=== PATIENT | female | born 1940 | race Asian ===

== ENCOUNTER 2019-02-12 13:38 | Emergency (ER) | payer MEDICARE, MEDICAID ==
[~2019-02-12] VITALS: Ht 157.5 cm; Wt 42.6 kg
[2019-02-12 13:45] VITALS: BP 149/73
[2019-02-12] MEDS ORDERED: oxyCODONE HCL/Acetaminophen 5/325mg ORAL ONE ×2 (13:45→15:45)
--- NOTE | 2019-02-12 13:45 | NUR ---
ED Nurse Note: pt walked in to ER with a son from street after tripping and falling. pt stays in SNF and went out with a son and did not see the bump and tripped and fell. Lt wrist had edema and pt reported pain 10/10. pt aao x4 and ambulatory. skin clean and intact. calm and cooperative. no acute distress noted at this time.
[2019-02-12] MEDS: Morphine Sulfate 4mg/ml Inj (IV USE ONLY) IVP ONE ×2 (13:56→14:02)
--- NOTE | 2019-02-12 14:02 | Emergency Room Report ---
History of Present Illness General Chief Complaint: Upper Extremity Injury Source: Patient Present Illness [facility] Disclaimer: Please note that this report is being documented using DRAGON technology. This can lead to erroneous entry secondary to incorrect interpretation by the dictating instrument. 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 She is right-hand dominant. Patient had a misstep on uneven sidewalk falling forward onto an outstretched left wrist. Noted immediate pain and deformity. There was no head injury or loss of consciousness. Denies neck or back pain. She is able to move the fingers of the left hand, the left shoulder and the left elbow without difficulty. The pain is centered around the left wrist. She denies any numbness or tingling. Denies any weakness. Does note limited range of motion secondary to pain and swelling. Has not taken any medication prior to arrival. She has been applying ice. PMH: Hypertension, hyperlipidemia, diabetes, bile duct cancer PSH: Whipple procedure Allergies: Denies Social Hx: Denies drug, tobacco or alcohol use Allergies: Coded Allergies: No Known Allergies (Unverified , 02/12/19) Nursing Documentation-PMH Past Medical History: No History, Except For Hx Diabetes: Yes Hx Cancer: Yes - bileduct CA Review of Systems All Other Systems: negative except mentioned in HPI Physical Exam Vital Signs Date Time Temp Pulse Resp B/P (MAP) Pulse Ox O2 Delivery O2 Flow Rate FiO2 02/12/19 13:41 98.1 69 18 149/73 (98) 97 Room Air General: Awake and alert, no acute distress HEENT: NC/AT. EOMI. Resp: Normal work of breathing. Skin: Intact. No abrasions, laceration or rash over the exposed skin MSK: Normal tone and bulk. Moving all extremities. Deformity over the dorsal aspect of the left wrist with surrounding edema. No overlying skin breakdown, no lacerations, no rash or abrasions. 2+ radial pulses bilaterally. Capillary refill less than 2 seconds in the digits. Neuro: Awake and alert. Mentating appropriately. Sensation intact over the dermatomes of the upper extremities bilaterally. Procedures Critical Care Time Critical Care Time Total critical care time: Approximately 31 minutes Due to a high probability of clinically significant, life threatening deterioration, the patient required the highest level of preparedness to intervene emergently and I personally spent this critical care time directly and personally managing the patient. This critical care time included obtaining a history, examining the patient, pulse oximetry, ordering and reviewing studies , ordering treatments, evaluating response to treatment and updating management plan as needed, frequent reassessment and discussion with other providers as well as arranging for ultimate disposition. This critical to care time was performed to assess and manage the high probability of life-threatening deterioration that could result in multiorgan failure. This critical care time is separate from the separately billable procedures and treating other patients. Joint Reduction Joint Reduction : Consent: Emergent Joint Reduction Site: wrist (L) Procedural Sedation: Yes Reduction Attempts: Other - 2 Pre-Procedure NV Exam: Yes Post-Procedure NV Exam: Yes Post Joint Reduction Film: joint reduced Patient Tolerated: Well Complications: None Procedural Sedation Consent: Verbal Airway Assessment (Malampati): I Heart: normal Lungs: normal Procedures/Plans: Closed Reduction Plan for Moderate Sedation: Other - 10mg Etomidate Procedure Narrative Procedural sedation performed at bedside for closed reduction of a left Colles' fracture. 10 mg of IV Versed were used without difficulty. The patient was on cardiac catheterization technologist and had supplemental oxygen through nasal cannula. There was no significant change in vital signs. Oxygenation remained greater than 98%, no hypotension, no tachycardia or bradycardia. Patient tolerated the procedure well. She was awake and alert approximately 5 minutes after initial administration of sedative. Mentating appropriately. No nausea or vomiting reported. Communication: No Apparent Limitation Mental Status: Awake Respiration: Unlabored Nausea: NO Vomiting: NO Medical Decision Making Diagnostic Impression: Primary Impression: Distal radius fracture, left ER Course 79-year-old [id number] female presents for evaluation of left wrist injury. Differential includes was not limited to fracture, dislocation, contusion, effusion. Will obtain x-rays and give oral pain medication. Do not believe CT or blood work is indicated at this time. Will reassess frequently and adjust work-up as needed. Other X-Ray Diagnostic Results Other X-Ray Diagnostic Results #1: X-Ray ordered: Left wrist # of Views/Limited Vs Complete: 3 View Indication: Pain EP Interpretation: Yes Interpretation: other - Distal radius fracture with minimal dorsal displacement Impression: Other - Colles' fracture, minimally displaced Electronically Signed by: Electronically signed by Dr. Yoshi M. Daniel Other X-Ray Diagnostic Results #2: X-Ray ordered: Left wrist, postreduction # of Views/Limited Vs Complete: 2 View Indication: Pain EP Interpretation: Yes Interpretation: other - Distal radius fracture with splint applied Reevaluation Time: 16:04 Last Vital Signs Date Time Temp Pulse Resp B/P (MAP) Pulse Ox O2 Delivery O2 Flow Rate FiO2 02/12/19 13:41 98.1 69 18 149/73 (98) 97 Room Air Reevaluation Impression Patient underwent a hematoma block and bedside reduction of the left distal radius fracture with unsatisfactory alignment. Procedural sedation was performed using 10 mg of etomidate and the patient was successfully reduced and resplinted. She was neurologically and vascularly intact at the start and end of the reduction. Capillary refill is brisk. She was placed in a splint and will be discharged home to follow-up with orthopedic surgery. We discussed reasons to return to the emergency department with patient and her family, appropriate splint care, need for follow-up with orthopedic surgery and she was provided several surgeons names as well as the orthopedic urgent care in the area for further evaluation and treatment. She was provided with her images. Patient and family understand and agree with this treatment plan will be discharged to her nursing facility Disposition: HOME, SELF-CARE Condition: Improved Scripts Ibuprofen* (MOTRIN*) 600 Mg Tablet 600 MG ORAL Q6HR PRN for For Pain, #40 TAB 0 Refills Prov: Yoshi Sanchez MD 02/12/19 Hydrocodone Bit/Acetaminophen 5-325* (NORCO 5-325*) 1 Each Tablet 1 TAB ORAL Q6H PRN for For Pain, #20 TAB 0 Refills Prov: Yoshi Sanchez MD 02/12/19 Yoshi Sanchez MD Feb 12, 2019 14:02
--- NOTE | 2019-02-12 14:03 | NUR ---
ED Nurse Note: pt refused iv access and Morphine and zofran IVP. ERMD made aware. returned the meds with RAMÓN Rausch witnessed.
[2019-02-12] MEDS ORDERED: Etomidate 40mg/20ml Inj IV ONE ×2 (14:06→16:30)
--- NOTE | 2019-02-12 14:48 | NUR ---
ED Nurse Note: x-ray at bedside.
[2019-02-12 14:51] VITALS: BP 164/85
[2019-02-12] MEDS ORDERED: Lidocaine 1% Plain 30 ml INJ ONE (15:15)
--- NOTE | 2019-02-12 15:35 | NUR ---
ED Nurse Note: Splint applied at this time by EMT. Another order for Percocet ordered by ERMD. Pt tolerates well at this time. No adverse reaction from previous dosage.
[2019-02-12] MEDS ORDERED: NORCO 5-325 TA1 EACH ORAL (15:42)
[2019-02-12] MEDS ORDERED: IBUPROFEN600 MG ORAL (15:42)
--- NOTE | 2019-02-12 15:55 | NUR ---
ED Nurse Note: X-ray tech at bedside for imaging.
--- NOTE | 2019-02-12 16:35 | NUR ---
ED Nurse Note: L arm reduction procedure done by RYANNE, RN and EMT at bedside. 10mg Atomidate given. Pt in light sedation. Oxygen 2L NC applied. child monitor attached to pt. SAT maintained >95%.
[2019-02-12 16:48] VITALS: BP 150/75
[2019-02-12 17:01] VITALS: BP 150/75
--- NOTE | 2019-02-12 17:02 | NUR ---
ER DISCHARGE NOTE: Patient is cleared to be discharged per ERMD, pt is aox4, on room air, with stable vital signs. pt was given dc and prescription instructions, pt was able to verbalize understanding, pt id band and iv site removed without complications. pt is able to ambulate with steady gait. pt took all belongings.
--- NOTE | 2019-02-13 12:36 | Diagnostic Imaging Report ---
Clinical Indication:Left wrist pain Technique: 3 views of the left wrist Comparison: None Findings: There is an impacted posteriorly angulated fracture of the distal radius. This is probably comminuted and appears to involve the articular surface. There is an associated nondisplaced fracture of the ulnar styloid. No carpal fracture demonstrated. There are mild degenerative changes of the first carpometacarpal joint. Impression: Positive for distal radial and ulnar fractures This agrees with the preliminary interpretation reported by the emergency room physician in the electronic medical record
--- NOTE | 2019-02-13 12:41 | Diagnostic Imaging Report ---
Indication: Pain, trauma, status post closed reduction Technique: 2 views of the left ribs Comparison: One hour earlier Findings: Overlying plaster splint obscures bony detail. Previously demonstrated distal radial and ulnar fractures are splinted, alignment probably not significantly changed. Impression: Previously demonstrated distal radial ulnar fractures, now in plaster splint
--- NOTE | 2019-02-13 12:48 | Diagnostic Imaging Report ---
Clinical Indication:Pain, postreduction Technique: 2 views of the left wrist Comparison: 2 hours earlier Findings: There is considerable improvement in anatomic alignment of the previously demonstrated distal radial fracture, with markedly decreased posterior angulation. The fracture is more clearly seen to be comminuted with intra-articular involvement on the current exam. Previously demonstrated ulnar styloid fracture is less clearly evident, however. Impression: Improved alignment, presumably post closed reduction, of previously demonstrated distal radial fracture
== END 2019-02-12 17:02 | disposition home or self-care (01) ==
LOC: EMR 14:05
DX: S52.502A Unspecified fracture of the lower end of left radius, initial encounter for closed fracture (principal); E11.9 Type 2 diabetes mellitus without complications; Z85.89 Personal history of malignant neoplasm of other organs and systems; E78.5 Hyperlipidemia, unspecified; I10 Essential (primary) hypertension; W18.39XA Other fall on same level, initial encounter; Y92.480 Sidewalk as the place of occurrence of the external cause
CPT/HCPCS: 25605; 73100; 73110; 99291; J2001; J2405

== ENCOUNTER 2019-04-02 12:43 | Emergency (ER) | payer MEDICARE, MEDICAID ==
[~2019-04-02] VITALS: Ht 157.5 cm; Wt 44.5 kg
[~2019-04-02 12:43] MED LIST: IBUPROFEN600 MG ORAL; NORCO 5-325 TA1 EACH ORAL
[2019-04-02] MEDS ORDERED: Morphine Sulfate 2mg/ml Inj(IV/IM USE ONLY) IVP ONE (13:15)
[2019-04-02 13:51] LABS: APPEARANCE,URINE CLEAR; BILIRUBIN, URINE NEGATIVE (NEGATIVE); GLUCOSE, URINE (UA) NEGATIVE (NEGATIVE); KETONES,URINE NEGATIVE (NEGATIVE); LEUKOCYTE ESTERASE ,URINE NEGATIVE (NEGATIVE); NITRITE,URINE NEGATIVE (NEGATIVE); PH,URINE 6 (4.5-8.0); PROTEIN,URINE 2+ (NEGATIVE); UROBILINOGEN,URINE NORMAL MG/DL (0.0-1.0)
[2019-04-02 13:53] LABS: BASOPHILS % (AUTO) 0.6 % (0.0-2.0); EOSINOPHILS % (AUTO) 2.2 % (0.0-3.0); HEMATOCRIT 36.5 % (37.0-47.0); HEMOGLOBIN 12.2 G/DL (12.0-16.0); LYMPHOCYTES % (AUTO) 21.1 % (20.0-45.0); MEAN CORPUSCULAR VOLUME 100 FL (80-99); MONOCYTES % (AUTO) 8.7 % (1.0-10.0); NEUTROPHILS % (AUTO) 67.4 % (45.0-75.0); PLATELET COUNT 159 K/UL (150-450); RED BLOOD COUNT 3.65 M/UL (4.20-5.40); RED CELL DISTRIBUTION WIDTH 11.3 % (11.6-14.8); WHITE BLOOD COUNT 9.1 K/UL (4.8-10.8)
[2019-04-02 13:56] LABS: COLOR,URINE YELLOW
[2019-04-02 13:57] LABS: INR 0.9 (0.9-1.1)
[2019-04-02 13:58] LABS: ANION GAP 10 mmol/L (5-15); BLOOD UREA NITROGEN 13 mg/dL (7-18); CALCIUM 9.5 MG/DL (8.5-10.1); CARBON DIOXIDE 26 MMOL/L (21-32); CHLORIDE 106 MMOL/L (98-107); CREATININE 0.7 MG/DL (0.55-1.30); SODIUM 142 MMOL/L (136-145)
[2019-04-02 14:03] VITALS: BP 129/79
[2019-04-02 14:03] LABS: ALANINE AMINOTRANSFERASE 144 U/L (12-78); ALBUMIN 3.5 G/DL (3.4-5.0); ALBUMIN/GLOBULIN RATIO 0.7 (1.0-2.7); ALKALINE PHOSPHATASE 157 U/L (46-116); ASPARTATE AMINO TRANSFERASE 82 U/L (15-37); BILIRUBIN,TOTAL 0.5 MG/DL (0.2-1.0)
--- NOTE | 2019-04-02 14:05 | NUR ---
ED Nurse Note:pt. came with lower back pain started this morning no trauma reported, blood and urine senty to labs, pain meds given
--- NOTE | 2019-04-02 14:52 | NUR ---
ED Nurse Note:pt. had CT scan done
--- NOTE | 2019-04-02 14:52 | Emergency Room Report ---
History of Present Illness General Chief Complaint: Lower Back Pain or Injury Source: Patient (Tarun Segovia MD) Present Illness HPI Patient is a 79-year-old female who presents after increased low back pain and sacral pain. Patient had spontaneous onset of pain. She had some prior history of malignancy approximately 10 years ago. She is not currently on any treatment at this time and has not had any recurrences. She reports having pain worsening with movement. She denies any recent injuries. Pain was sharp in nature and did not radiate. She had been able to ambulate. She denies any similar episodes to this. No numbness to her extremities. (Tarun Segovia MD) Allergies: Coded Allergies: No Known Allergies (Unverified , 02/12/19) Patient History Reviewed Nursing Documentation: PMH: Agreed; PSxH: Agreed (Tarun Segovia MD) Nursing Documentation-PM Past Medical History: No History, Except For Hx Diabetes: Yes Hx Cancer: Yes - bileduct CA (Tarun Segovia MD) Physical Exam Vital Signs Date Time Temp Pulse Resp B/P (MAP) Pulse Ox O2 Delivery O2 Flow Rate FiO2 04/02/19 12:52 98.4 109 21 129/79 (96) 95 Room Air Sp02 EP Interpretation: reviewed, normal General Appearance: normal inspection, well appearing, no apparent distress, alert, GCS 15, Chronically Ill Head: atraumatic ENT: normal ENT inspection, hearing grossly normal, normal voice Neck: normal inspection, full range of motion, supple, no bony tend Respiratory: normal inspection, lungs clear, normal breath sounds, no respiratory distress, no retraction, no wheezing Cardiovascular #1: regular rate, rhythm, no edema Gastrointestinal: normal inspection, normal bowel sounds, non tender, soft, no guarding, no hernia Genitourinary: no CVA tenderness Musculoskeletal: normal inspection, normal range of motion, tender - buttock, no erythema, no deformity, no stepoffs. Neurologic: normal inspection, alert, oriented x3, responsive, pole classifier III-XII nml as tested, normal gait Psychiatric: normal inspection, judgement/insight normal, mood/affect normal (Tarun Segovia MD) Vital Signs Date Time Temp Pulse Resp B/P (MAP) Pulse Ox O2 Delivery O2 Flow Rate FiO2 04/02/19 12:52 98.4 109 21 129/79 (96) 95 Room Air Sp02 EP Interpretation: reviewed, normal General Appearance: well appearing, no apparent distress, alert Head: normocephalic, atraumatic Eyes: bilateral eye PERRL, bilateral eye EOMI ENT: uvula midline, moist mucus membranes Neck: supple, thyroid normal, supple/symm/no masses Respiratory: lungs clear, no respiratory distress, no retraction, no accessory muscle use Cardiovascular #1: normal peripheral pulses, regular rate, rhythm, no edema, no gallop, no murmur Gastrointestinal: non tender, soft, no guarding, no rebound Musculoskeletal: normal inspection, gait/station normal, other - Some tenderness L4 region Neurologic: alert, oriented x3, motor strength/tone normal, sensory intact, normal gait Psychiatric: mood/affect normal Skin: no rash, warm/dry (Khang Barillas MD) Medical Decision Making Diagnostic Impression: Primary Impression: Compression fracture of L4 vertebra Qualified Codes: S32.040A - Wedge compression fracture of fourth lumbar vertebra, initial encounter for closed fracture ER Course Patient presented for low back pain and sacral pain. Differential diagnosis include was not limited to electrolyte abnormality, compression fracture, metastatic lesion among others. Because of complexity of patient's case laboratory tests and imaging studies were ordered. Patient had benign exam does not appear to have any abdominal tenderness. She was noted to be ambulatory. Patient was given IV pain medications with significant improvement. CT of the lumbar spine as well as the soft pelvis was ordered due to patient's locations of pain advanced age and prior malignancy. Patient was endorsed to pending CT imaging. Labs Test 04/02/19 13:36 White Blood Count 9.1 K/UL (4.8-10.8) Red Blood Count 3.65 M/UL (4.20-5.40) Hemoglobin 12.2 G/DL (12.0-16.0) Hematocrit 36.5 % (37.0-47.0) Mean Corpuscular Volume 100 FL (80-99) Mean Corpuscular Hemoglobin 33.5 PG (27.0-31.0) Mean Corpuscular Hemoglobin Concent 33.4 G/DL (32.0-36.0) Red Cell Distribution Width 11.3 % (11.6-14.8) Platelet Count 159 K/UL (150-450) Mean Platelet Volume 5.9 FL (6.5-10.1) Neutrophils (%) (Auto) 67.4 % (45.0-75.0) Lymphocytes (%) (Auto) 21.1 % (20.0-45.0) Monocytes (%) (Auto) 8.7 % (1.0-10.0) Eosinophils (%) (Auto) 2.2 % (0.0-3.0) Basophils (%) (Auto) 0.6 % (0.0-2.0) Prothrombin Time 9.8 SEC (9.30-11.50) Prothromb Time International Ratio 0.9 (0.9-1.1) Activated Partial Thromboplast Time 25 SEC (23-33) Urine Color Yellow Urine Appearance Clear Urine pH 6 (4.5-8.0) Urine Specific [place] 1.020 (1.005-1.035) Urine Protein 2+ (NEGATIVE) Urine Glucose (UA) Negative (NEGATIVE) Urine Ketones Negative (NEGATIVE) Urine Blood 1+ (NEGATIVE) Urine Nitrite Negative (NEGATIVE) Urine Bilirubin Negative (NEGATIVE) Urine Urobilinogen Normal MG/DL (0.0-1.0) Urine Leukocyte Esterase Negative (NEGATIVE) Urine RBC 2-4 /HPF (0 - 2) Urine WBC 0-2 /HPF (0 - 2) Urine Squamous Epithelial Cells Few /LPF (NONE/OCC) Urine Bacteria Occasional /HPF (NONE) Sodium Level 142 MMOL/L (136-145) Potassium Level 4.0 MMOL/L (3.5-5.1) Chloride Level 106 MMOL/L (98-107) Carbon Dioxide Level 26 MMOL/L (21-32) Anion Gap 10 mmol/L (5-15) Blood Urea Nitrogen 13 mg/dL (7-18) Creatinine 0.7 MG/DL (0.55-1.30) Estimat Glomerular Filtration Rate mL/min (>60) Glucose Level 115 MG/DL (74-106) Calcium Level 9.5 MG/DL (8.5-10.1) Total Bilirubin 0.5 MG/DL (0.2-1.0) Aspartate Amino Transf (AST/SGOT) 82 U/L (15-37) Alanine Aminotransferase (ALT/SGPT) 144 U/L (12-78) Alkaline Phosphatase 157 U/L (46-116) Troponin I 0.000 ng/mL (0.000-0.056) Total Protein 8.2 G/DL (6.4-8.2) Albumin 3.5 G/DL (3.4-5.0) Globulin 4.7 g/dL Albumin/Globulin Ratio 0.7 (1.0-2.7) (Tarun Segovia MD) ER Course The patient presents with acute onset of back pain. There is a completely normal neurological exam, no history of IV drug use, and no history of bowel or bladder incontinence, no perianal numbness/tingling, no constipation or urinary retention. Once the patient's pain was adequately controlled, the patient was able to ambulate and be discharged in stable condition with anticipatory guidance provided. Patient counseled to follow-up with ortho spine neurosurgery spine, given her L4 compression fracture. (Khang Barillas MD) CT/MRI/US Diagnostic Results CT/MRI/US Diagnostic Results : Impression [facility] [address] [place] [address] [phone], fax [phone] Grupo Nielsen M.D. Rivet Passer Patient : AZUCENA YOUNG Referring Physician: Tarun Segovia MD ID Number: [id number] Service Date: 04/02/19 : 1940 Report Date: 04/02/19 Gender: F Accession No.: [id number] Location: [facility] Procedure: CT Pelvis no Contrast CT PELVIS Without Contrast: Mild anterior compression fracture deformity of L4 with approximately 10% height loss. No other fracture or dislocation seen in the pelvis. Trace free fluid in the pelvic cul-de-sac. Incidental note of coarse calcifications in the right ovary. Dictated By: Stone Elise MD Electronically Signed By: Signed Date/Time CC: Procedure: CT L Spine no Contrast CT L SPINE: Mild anterior compression fracture deformity of L4 with approximately 10% height loss. No bony retropulsion into the spinal canal. No significant paravertebral hematoma. Degenerative disc space loss and endplate osteophytes throughout the lumbar spine. Atherosclerosis throughout the abdominal aorta and its proximal branches. No abdominal aortic aneurysm. Dictated By: Stone Elise MD Electronically Signed By: Signed Date/Time CC: (Khang Barillas MD) Last Vital Signs Date Time Temp Pulse Resp B/P (MAP) Pulse Ox O2 Delivery O2 Flow Rate FiO2 10/27/19 14:03 98.4 78 21 129/79 97 Room Air Status: improved (Tarun Segovia MD) Disposition: HOME, SELF-CARE Condition: Stable Referrals: Orthopedic Urgent Care Patient Instructions: Back Pain, Adult Additional Instructions: The patient was provided with discharge instructions, notified to follow-up with a primary care doctor and or specialist in the next 24-48 hours, and to return to the ED if they have worsening of their symptoms. Please note that this report is being documented using [employer]omik technology. This can lead to erroneous entry secondary to incorrect interpretation by the dictating instrument. PLEASE FOLLOW-UP WITH ORTHO SPINE, OR NEUROSURGERY SPINE Tarun Segovia MD Apr 02, 2019 14:52 Khang Barillas MD Apr 02, 2019 16:14
--- NOTE | 2019-04-02 15:53 | Diagnostic Imaging Report ---
Indication: Back pain Technique: Continuous helical transaxial imaging of the lumbar spine was obtained. . Coronal 2-D reformats were also obtained. Study obtained in a Siemens sensation [address] Total Dose length Product (DLP): [address] Dose Index Volume (CTDIvol): 14.7 mGy Comparison: None Findings: There is a mild fracture of the superior anterior endplate of L4 probably best appreciated on sagittal reconstructions. This could be acute. Correlate clinically. There is no soft tissue swelling or evidence of bony retropulsion identified. Bones are osteopenic. Moderate degenerative changes with endplate osteophyte formation and hypertrophied facets noted at multiple levels. Aorta is moderately calcified. There are surgical clips demonstrated within the abdomen. IMPRESSION: Mild superior endplate fracture of the L4 vertebra with the minimal loss of height. This could be an acute injury. Correlate clinically. MRI may be helpful to assess for acuity. Degenerative disease of the lumbar spine as described above Osteoporosis. [facility] has communicated the preliminary results to the Emergency Department. Their findings are largely concordant with this report. The CT scanner at [facility] is accredited by the [employer] and the scans are performed using dose optimization techniques as appropriate to a performed exam including Automatic Exposure control.
--- NOTE | 2019-04-02 15:58 | Diagnostic Imaging Report ---
Indication: Pelvic pain. Trauma Technique: Continuous helical transaxial imaging of the pelvis was obtained from the iliac crest to the pubic symphysis. Coronal 2-D reformats were also obtained. Study obtained in a Siemens sensation [address] Total Dose length Product (DLP): [address] Dose Index Volume (CTDIvol): 17.2 mGy Comparison: None Findings: No acute fracture is identified. The bones are osteopenic. 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 Aortoiliac calcifications are moderate in degree. Please refer to the separately dictated CT of the lumbar spine for more information. Atrophic uterus noted. There is a calcified focus within the right ovary nonspecific. Appendix is normal. IMPRESSION: No acute injury identified. Other incidental findings as above [facility] has communicated the preliminary results to the Emergency Department. Their findings are largely concordant with this report. The CT scanner at [facility] is accredited by the [employer] and the scans are performed using dose optimization techniques as appropriate to a performed exam including Automatic Exposure control.
[2019-04-02 16:20] VITALS: BP 125/77
[2019-04-02 16:25] VITALS: BP 125/77
--- NOTE | 2019-04-02 16:25 | NUR ---
ER DISCHARGE NOTE:back brace placed on pt Patient is cleared to be discharged per ERMD, pt is aox4, on room air, with stable vital signs. pt was given dc and prescription instructions, pt was able to verbalize understanding, pt id band and iv site removed without complications. pt is able to ambulate with steady gait and family member pt took all belongings.
== END 2019-04-02 16:25 | disposition home or self-care (01) ==
LOC: EMR 16:16
DX: S32.040A Wedge compression fracture of fourth lumbar vertebra, initial encounter for closed fracture (principal); E11.9 Type 2 diabetes mellitus without complications; Z85.89 Personal history of malignant neoplasm of other organs and systems
CPT/HCPCS: 36415; 72131; 72192; 80053; 81001; 82962; 84484; 85025; 85610; 85730; 96374; 99284; J2270

== ENCOUNTER 2019-04-05 12:26 | Inpatient (IN) | payer MEDICARE, MEDICAID ==
[~2019-04-05] VITALS: Ht 152.4 cm; Wt 42.8 kg
[2019-04-05] MEDS ORDERED: Morphine Sulfate 2mg/ml Inj(IV/IM USE ONLY) IVP ONE (12:30)
--- NOTE | 2019-04-05 12:40 | NUR ---
ED Nurse Note: Patient brought in by ambulance [facility] from [facility], patient s/p fall 03/31/19 and was discharged from [facility], was diagnosed with L4 fracture, patient reports she was able to walk but since yesterday noon patient cannot. patient reports the pain is getting worse since this morning. patient is alert awake x4 breathing unlabored and even, speaking in full sentences, placed patient on a hospital gown and on a monitor.
[2019-04-05 12:58] VITALS: BP 150/71
[2019-04-05] MEDS ORDERED: OMEPRAZOLE40 M1 ORAL (13:00)
[2019-04-05] MEDS ORDERED: BREO ELLIPTA 21 EACH IH (13:00)
[2019-04-05] MEDS ORDERED: LOSARTAN POTASS50 MG ORAL (13:00)
[2019-04-05] MEDS ORDERED: PLAQUENIL PO (13:00)
[2019-04-05] MEDS ORDERED: MACROBID100 MG ORAL (13:00)
[2019-04-05] MEDS ORDERED: LEVOTHYROXINE100 MC1 PO (13:00)
[2019-04-05] MEDS ORDERED: ATORVASTATIN CA20 MG ORAL (13:00)
[2019-04-05] MEDS ORDERED: MIRTAZAPINE15 M3 ORAL (13:00)
[2019-04-05] MEDS ORDERED: ZYPREXA5 MG ORAL (13:00)
[2019-04-05] MEDS ORDERED: FOSAMAX70 MG ORAL (13:00)
[2019-04-05] MEDS ORDERED: SERTRALINE HCL25 MG ORAL (13:00)
[2019-04-05 13:09] LABS: BASOPHILS % (AUTO) 0.5 % (0.0-2.0); EOSINOPHILS % (AUTO) 3.1 % (0.0-3.0); HEMATOCRIT 34.9 % (37.0-47.0); HEMOGLOBIN 11.7 G/DL (12.0-16.0); LYMPHOCYTES % (AUTO) 17.6 % (20.0-45.0); MEAN CORPUSCULAR VOLUME 99 FL (80-99); MONOCYTES % (AUTO) 6.6 % (1.0-10.0); NEUTROPHILS % (AUTO) 72.2 % (45.0-75.0); PLATELET COUNT 157 K/UL (150-450); RED BLOOD COUNT 3.52 M/UL (4.20-5.40); RED CELL DISTRIBUTION WIDTH 11.3 % (11.6-14.8); WHITE BLOOD COUNT 7.3 K/UL (4.8-10.8)
[2019-04-05 13:12] LABS: ANION GAP 10 mmol/L (5-15); BLOOD UREA NITROGEN 9 mg/dL (7-18); CALCIUM 8.9 MG/DL (8.5-10.1); CARBON DIOXIDE 24 MMOL/L (21-32); CHLORIDE 107 MMOL/L (98-107); CREATININE 0.7 MG/DL (0.55-1.30); POTASSIUM 3.3 MMOL/L (3.5-5.1); SODIUM 141 MMOL/L (136-145)
--- NOTE | 2019-04-05 13:12 | NUR ---
ED Nurse Note: patient taken to MRI
[2019-04-05 13:17] LABS: ALANINE AMINOTRANSFERASE 69 U/L (12-78); ALBUMIN 3.3 G/DL (3.4-5.0); ALBUMIN/GLOBULIN RATIO 0.7 (1.0-2.7); ALKALINE PHOSPHATASE 139 U/L (46-116); ASPARTATE AMINO TRANSFERASE 31 U/L (15-37); BILIRUBIN,TOTAL 0.8 MG/DL (0.2-1.0)
[2019-04-05 13:24] LABS: INR 0.9 (0.9-1.1)
--- NOTE | 2019-04-05 13:46 | NUR ---
HAND-OFF: Report given to erlin Cline RN. patient is still in MRI
--- NOTE | 2019-04-05 15:28 | Diagnostic Imaging Report ---
Indication: Back pain Technique: MRI examination of the lumbar spine was performed in a 1.5 Tosin magnet. Sequences obtained include sagittal and axial T1 and T2 fast spin echo, and sagittal STIR. Comparison: CT lumbar spine 04/02/2019 Findings: There is confirmation of an acute horizontal fracture involving the superior endplate of L4 seen as a linear focus of T1 hypointensity and T2 hyperintensity. There is minimal loss of height. In addition, there is also a horizontal fracture involving the superior endplate of T12. There is no associated retropulsion at either level. Conus medullaris and visualized part of the distal spinal cord appear normal. The cord is noted terminating at about L1. Alignment of the lumbar spine is anatomic. There is multilevel narrowing of the intervertebral discs with endplate and facet osteophyte formation. T12-L1 shows no central or neural foraminal stenosis. L1-2 shows no central or neural foraminal stenosis. L2-3 demonstrates a minimal concentric disc bulge and hypertrophied facets. No central or foraminal stenosis demonstrated. L3-4 shows a mild concentric disc bulge. No central foraminal stenosis demonstrated. Hypertrophied facets noted. L4-5 demonstrates concentric disc bulge. There is no stenosis of the central canal but there is suggestion of narrowing of the lateral recess especially on the right side with the slight abutting of the traversing L5 nerve roots right greater than left. Hypertrophied facets also noted. There is some mild to moderate neural foraminal stenosis bilaterally probably slightly worse on the right. L5-S1 shows no central or neural foraminal stenosis. No disc herniation identified. Facets appear mildly hypertrophic. IMPRESSION: Mild acute horizontal superior endplate fractures at T12 and L4. Minimal loss of height. No retropulsion. Degenerative spondylosis as described above
[2019-04-05 15:42] LABS: APPEARANCE,URINE CLEAR; BILIRUBIN, URINE NEGATIVE (NEGATIVE); COLOR,URINE PALE YELLOW; GLUCOSE, URINE (UA) NEGATIVE (NEGATIVE); KETONES,URINE NEGATIVE (NEGATIVE); LEUKOCYTE ESTERASE ,URINE 2+ (NEGATIVE); NITRITE,URINE NEGATIVE (NEGATIVE); PH,URINE 6.5 (4.5-8.0); PROTEIN,URINE 2+ (NEGATIVE); UROBILINOGEN,URINE NORMAL MG/DL (0.0-1.0)
--- NOTE | 2019-04-05 15:56 | Emergency Room Report ---
History of Present Illness General Chief Complaint: Lower Back Pain or Injury Source: Patient, EMS Present Illness HPI Patient 79-year-old female who presented after worsening back pain and difficulty with ambulation. Patient had recent increased low back pain.. She had a previous diagnosis of lumbar spine compression fracture. She had not been vomiting or having any fever. She had been able to urinate normally. She had not been having any weakness to her extremities. She reports of increased pain to the right buttock primarily. Patient had recently been seen in the emergency department and had a CT imaging which showed compression fracture. Patient had been initially able to ambulate well after medications. She had persistent pain and's presented to the emergency department. Allergies: Coded Allergies: No Known Allergies (Unverified , 02/12/19) Patient History Past Medical History: see triage record Now: No Reviewed Nursing Documentation: PMH: Agreed; PSxH: Agreed Nursing Documentation-PMH Hx Diabetes: Yes Hx Cancer: Yes - bileduct CA Review of Systems All Other Systems: negative except mentioned in HPI Physical Exam Vital Signs Date Time Temp Pulse Resp B/P (MAP) Pulse Ox O2 Delivery O2 Flow Rate FiO2 04/05/19 12:32 97.3 100 14 158/78 (104) 95 Room Air Sp02 EP Interpretation: reviewed, normal General Appearance: normal inspection, well appearing, no apparent distress, alert, GCS 15, Chronically Ill Head: atraumatic ENT: normal ENT inspection, hearing grossly normal, normal voice Neck: normal inspection, full range of motion, supple, no bony tend Respiratory: normal inspection, lungs clear, normal breath sounds, no respiratory distress, no retraction, no wheezing Cardiovascular #1: regular rate, rhythm, no edema Gastrointestinal: normal inspection, normal bowel sounds, non tender, soft, no guarding, no hernia Genitourinary: no CVA tenderness Musculoskeletal: normal inspection, back normal, normal range of motion Neurologic: normal inspection, alert, oriented x3, responsive, education technician III-XII nml as tested, motor strength/tone normal, speech normal Psychiatric: normal inspection, judgement/insight normal, mood/affect normal Medical Decision Making Diagnostic Impression: Primary Impression: Lumbar compression fracture ER Course Patient presented for worsening low back pain. Differential diagnosis include was not limited to spinal cord injury, worsening fracture, cauda equina syndrome among others. Because of complexity of patient's case laboratory tests and imaging studies were ordered. Patient was noted to have what appears to be a lumbar compression fracture. MRI was ordered due to patient's recent worsening of symptoms. MRI read by radiology showed acute L4 compression fracture. This appears to be less than 10% loss of height. No cord compression. Dr. Hoang was contacted for inpatient management and agreed to admit the patient. Dr. Joce Day was contacted for orthopedic consult. Labs Test 04/05/19 12:48 04/05/19 14:30 White Blood Count 7.3 K/UL (4.8-10.8) Red Blood Count 3.52 M/UL (4.20-5.40) Hemoglobin 11.7 G/DL (12.0-16.0) Hematocrit 34.9 % (37.0-47.0) Mean Corpuscular Volume 99 FL (80-99) Mean Corpuscular Hemoglobin 33.3 PG (27.0-31.0) Mean Corpuscular Hemoglobin Concent 33.5 G/DL (32.0-36.0) Red Cell Distribution Width 11.3 % (11.6-14.8) Platelet Count 157 K/UL (150-450) Mean Platelet Volume 6.0 FL (6.5-10.1) Neutrophils (%) (Auto) 72.2 % (45.0-75.0) Lymphocytes (%) (Auto) 17.6 % (20.0-45.0) Monocytes (%) (Auto) 6.6 % (1.0-10.0) Eosinophils (%) (Auto) 3.1 % (0.0-3.0) Basophils (%) (Auto) 0.5 % (0.0-2.0) Prothrombin Time 9.8 SEC (9.30-11.50) Prothromb Time International Ratio 0.9 (0.9-1.1) Activated Partial Thromboplast Time 27 SEC (23-33) Sodium Level 141 MMOL/L (136-145) Potassium Level 3.3 MMOL/L (3.5-5.1) Chloride Level 107 MMOL/L (98-107) Carbon Dioxide Level 24 MMOL/L (21-32) Anion Gap 10 mmol/L (5-15) Blood Urea Nitrogen 9 mg/dL (7-18) Creatinine 0.7 MG/DL (0.55-1.30) Estimat Glomerular Filtration Rate mL/min (>60) Glucose Level 159 MG/DL (74-106) Calcium Level 8.9 MG/DL (8.5-10.1) Total Bilirubin 0.8 MG/DL (0.2-1.0) Aspartate Amino Transf (AST/SGOT) 31 U/L (15-37) Alanine Aminotransferase (ALT/SGPT) 69 U/L (12-78) Alkaline Phosphatase 139 U/L (46-116) Troponin I 0.000 ng/mL (0.000-0.056) Total Protein 8.3 G/DL (6.4-8.2) Albumin 3.3 G/DL (3.4-5.0) Globulin 5.0 g/dL Albumin/Globulin Ratio 0.7 (1.0-2.7) Urine Color Pale yellow Urine Appearance Clear Urine pH 6.5 (4.5-8.0) Urine Specific [place] 1.010 (1.005-1.035) Urine Protein 2+ (NEGATIVE) Urine Glucose (UA) Negative (NEGATIVE) Urine Ketones Negative (NEGATIVE) Urine Blood 1+ (NEGATIVE) Urine Nitrite Negative (NEGATIVE) Urine Bilirubin Negative (NEGATIVE) Urine Urobilinogen Normal MG/DL (0.0-1.0) Urine Leukocyte Esterase 2+ (NEGATIVE) Last Vital Signs Date Time Temp Pulse Resp B/P (MAP) Pulse Ox O2 Delivery O2 Flow Rate FiO2 04/05/19 13:46 98.5 04/05/19 12:58 82 22 150/71 95 Room Air Status: unchanged Disposition: ADMITTED INPATIENT Condition: Stable Referrals: NON PHYSICIAN (PCP) Tarun Segovia MD Apr 05, 2019 15:56
--- NOTE | 2019-04-05 16:26 | NUR ---
Note matheus in EDM - 04/05/19 at 1705 by PEGGY ED Nurse Note: Report given to RAMÓN Galeana. Bed not ready yet. Receiving nurse says she will call back.
--- NOTE | 2019-04-05 17:05 | NUR ---
ED Nurse Note: Report given to RAMÓN Flores on telemetry. Patient transferred to floor. Patient only going up with a blanket, all other belongings given to her son.
--- NOTE | 2019-04-05 17:10 | NUR ---
NURSE NOTES: Patient arrived the unite from ER by silvio; I received telephone report from RAMÓN Granda; patient awake, alert x3, confused; on room air, no sing of distress and shortness of breath; no sing of chest pain IV Right Wrist 20G flushes well; skin intact; patient has pain on her back; vitals taken upon arrival to the unit; bed at lowest position, breaks engaged, side rails up, bed alarm on; call light within reach; will keep monitoring.
[2019-04-05 17:20] VITALS: BP 160/82
[2019-04-05] MEDS ORDERED: oxyCODONE 5mg IR tab ORAL PRN (18:30)
[2019-04-05] MEDS: traMADol 50mg tab ORAL SCH (18:47)
--- NOTE | 2019-04-05 19:30 | NUR ---
NURSE NOTES: Report received from RAMÓN Galeana. Patient is resting comfortably in bed supine with pillow support. Alert and oriented x3, forgetful. C/o of lower back pain, medication given per eMAR. IV is intact and saline locked. Joaquin Michelle is at bedside [phone] and told RN to call if need anything. New Purewick applied to suction. Will continue to monitor.
--- NOTE | 2019-04-05 19:36 | NUR ---
HAND-OFF: Report given to RAMÓN Mora.
[2019-04-05 20:00] VITALS: BP 135/75
[2019-04-05] MEDS: Carvedilol 12.5mg tab ORAL SCH (20:40)
[2019-04-05] MEDS: Donepezil 5mg Tab ORAL SCH (20:40)
[2019-04-05] MEDS: Docusate 100mg cap ORAL SCH (20:40)
[2019-04-05] MEDS: Heparin 5000 units/ml inj SUBQ SCH (20:41)
[2019-04-05] MEDS: NovoLOG Insulin Flexpen SUBQ SCH (20:42)
[2019-04-05] MEDS ORDERED: Miralax 17gm pkt ORAL PRN (21:00)
--- NOTE | 2019-04-05 22:16 | History and Physical Report ---
DATE OF ADMISSION: 04/05/2019 CHIEF COMPLAINT AND REASON FOR HOSPITALIZATION: The patient is admitted with severe back pain. HISTORY OF PRESENT ILLNESS: The history is taken with the family at the bedside and son, Miguel Angel Stapleton, telephone number [phone], interprets. She apparently had a ground level fall 3 days ago, was seen in the emergency room, and found to have a lumbar compression fracture, but she was stable to be discharged. She subsequently saw an orthopedic surgeon yesterday and had a CT scan at another location. However today, her pain was unbearable and she came to the emergency room. The patient has generally been in good health. She now lives in assisted living after diagnosis of diabetes was made about a year ago. According to the son, however recent glucoses have been under 200. The patient is walking with a walker intermittently, but not regularly. She has a somewhat unsteady gait. Other than that, she has generally been doing well. She does have a history of hypertension. 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 About a year ago, she had weight loss with significant and discovery of diabetes. SURGERIES: Whipple surgery as above. CURRENT MEDICATIONS: Ibuprofen 600 mg every 6 hours p.r.n., calcium 500 mg b.i.d., tramadol 50 mg q.i.d. just started, sertraline 50 mg daily, Trulicity 0.5 mL every week, vitamin D3 2000 units daily, folic acid 400 mcg daily, Glucerna 1 can p.r.n., Humalog sliding scale, carvedilol 12.5 mg b.i.d., donepezil 5 mg daily, Namenda 10 mg b.i.d., mirtazapine 30 mg at bedtime, multivitamin 1 daily, and nifedipine ER 90 mg daily. ALLERGIES: None known. SYSTEM REVIEW: HEENT: Vision and hearing are generally well preserved. ENDOCRINE: Diabetes as above. No known thyroid disease. PULMONARY: No asthma, TB, or chronic cough. She is a nonsmoker. CARDIAC: No angina, myocardial infarction, or palpitations. There is a history of hypertension. GASTROINTESTINAL: No gastrointestinal bleeding or ulcers. GENITOURINARY: No dysuria, hematuria, or kidney stones at this time. However, she has had recurrent UTIs. MUSCULOSKELETAL: History of some mild joint pains. Her acute pain is new. NEUROLOGIC: Some mild cognitive impairment. No definite focal stroke or seizure. DATABASE: She has on MRI of the spine mild acute horizontal superior endplate fractures of T12 and L4, minimal loss of height, no retropulsion, degenerative spondylosis. PHYSICAL EXAMINATION: GENERAL: The patient is an alert thin lady, lying in bed, in moderate pain. VITAL SIGNS: Reviewed on the computer database. HEAD, EYES, EARS, NOSE, AND THROAT: Sclerae nonicteric. Ocular motion is intact in all directions. Oral mucosa slightly dry. NECK: No adenopathy or thyroid enlargement. LUNGS: Clear. HEART: Regular rhythm. I hear no murmur. ABDOMEN: Soft. There is no organomegaly or masses. EXTREMITIES: No edema, cyanosis, or clubbing. BACK: She is in viryiwoc-hw-rmlozo pain. Brings her knees towards her chest, almost a position. She seems to be quite comfortable while lying in bed. I do not notice any severe kyphosis or deformities. IMPRESSION: 1. Back pain, new in onset with a recent lumbar and possible thoracic pain. 2. History of diabetes with hyperglycemia. 3. History of hypertension. 4. History of taking antidepressants. 5. History of cognitive deficit, possible Alzheimer's. PLAN: I have discussed with the family and she wishes for DNR/DNI comfort measures. Will undergo pain management, try not to give excess opiates. We will get orthopedic opinion regarding her back pain and management thereof. Tao Hoang M.D. DR: JENNIFER JOB#: [id number] CC:
[2019-04-06] VITALS: BP 138/81
[2019-04-06] MEDS: traMADol 50mg tab ORAL SCH ×4 (00:24→18:35)
[2019-04-06 04:00] VITALS: BP 150/83
[2019-04-06] MEDS: NovoLOG Insulin Flexpen SUBQ SCH ×4 (06:16→21:01)
--- NOTE | 2019-04-06 07:37 | NUR ---
HAND-OFF: Report given to Alla Mccrary RN. Patient in stable condition.
--- NOTE | 2019-04-06 07:37 | NUR ---
NURSE NOTES: received report from Morgan.RN. patient in bed. having breakfast. alert.oriented. verbally responsive in greenlandic &kyrgyz. no respiratory distress noted. no c/o pain at this time. IV on Rt wirst saline lock intact. fall risk. yellow socks. bed in the lowest position and locked. call light within reach. will continue to provide plan of care.
[2019-04-06 08:00] VITALS: BP 128/79
[2019-04-06] MEDS: Docusate 100mg cap ORAL SCH ×2 (08:14→20:54)
[2019-04-06] MEDS: Memantine 10mg tab ORAL SCH ×2 (08:14→17:20)
[2019-04-06] MEDS: Tums 500mg ORAL SCH ×2 (08:15→17:20)
[2019-04-06] MEDS: Carvedilol 12.5mg tab ORAL SCH ×2 (08:15→20:55)
[2019-04-06] MEDS: Losartan 50mg tab ORAL SCH (08:16)
[2019-04-06] MEDS: Heparin 5000 units/ml inj SUBQ SCH ×2 (08:17→20:56)
[2019-04-06] MEDS ORDERED: Sertraline 50mg tab ORAL SCH (09:00)
[2019-04-06] MEDS ORDERED: Vitamin D 1000 IU Tab ORAL SCH (09:00)
[2019-04-06 12:00] VITALS: BP 136/70
--- NOTE | 2019-04-06 13:12 | NUR ---
RD ASSESSMENT & RECOMMENDATIONS SEE CARE ACTIVITY FOR COMPLETE ASSESSMENT DAILY ESTIMATED NEEDS: Needs based on DM, cardiac 42.7kg 25-35 kcals/kg 4826-1441 total kcals 1-1.5 g protein/kg 43-64 g total protein 25-30 mL/kg 7424-0136 total fluid mLs NUTRITION DIAGNOSIS: Altered nutrition related lab values r/t DM, clinical status as evidenced b y BG 159, w/ elev POC (152-208), low K (3.3). CURRENT DIET:CCHO MED/ KHUSHI PO DIET RECOMMENDATIONS: [facility] + Glucerna 1 tetra alessandro TID w/ meals ADDITIONAL RECOMMENDATIONS: 1) CARPET WEAVER eval for appropriate texture and improved food acceptance 2) Obtain a calibrated bed scale wt 3) Add glucerna 1 tetra alessandro w/ meals 4) Snacks in b/w meals 5) Check lytes daily, replete as needed (Low K) 6) Consider calorie count for eval
--- NOTE | 2019-04-06 15:00 | NUR ---
NURSE NOTES: patient seen by Dr. Hoang. received order start Kdur 88uxyn0. total 80 meq for hypokalemia 3.3 this morning. repeat UA. PT eval & TX up on chair as tolerated. CMC and BMP on 04/07/19. order noted and carried out.
--- NOTE | 2019-04-06 15:20 | General Progress Note ---
Assessment/Plan Problem List: (1) Diabetes ICD Codes: E11.9 - Type 2 diabetes mellitus without complications SNOMED: 96780951 (2) Gait abnormality ICD Codes: R26.9 - Unspecified abnormalities of gait and mobility SNOMED: 27119080 (3) Back pain ICD Codes: M54.9 - Dorsalgia, unspecified SNOMED: 923566057 (4) Lumbar compression fracture ICD Codes: S32.000A - Wedge compression fracture of unspecified lumbar vertebra , initial encounter for closed fracture SNOMED: 290908726 Subjective Constitutional: Reports: weakness HEENT: Reports: no symptoms Respiratory: Reports: no symptoms Gastrointestinal/Abdominal: Reports: no symptoms Genitourinary: Reports: no symptoms Neurologic/Psychiatric: Reports: pre-existing deficit Endocrine: Reports: no symptoms Allergies: Coded Allergies: No Known Allergies (Unverified , 02/12/19) Subjective mod back pain Objective Last 24 Hour Vital Signs Date Time Temp Pulse Resp B/P (MAP) Pulse Ox O2 Delivery O2 Flow Rate FiO2 04/06/19 12:00 98.0 66 19 136/70 (92) 96 04/06/19 09:00 Room Air 04/06/19 08:16 128/79 04/06/19 08:15 84 128/79 04/06/19 08:15 84 128/79 04/06/19 08:00 98.2 84 18 128/79 (95) 95 04/06/19 04:00 97.5 87 16 150/83 (105) 95 04/06/19 00:00 98.2 95 16 138/81 (100) 95 04/05/19 21:00 Room Air 04/05/19 20:40 97 135/75 04/05/19 20:00 98.5 97 17 135/75 (95) 93 04/05/19 19:17 97.9 04/05/19 19:17 97.9 04/05/19 18:11 Room Air 04/05/19 17:20 97.9 104 18 160/82 (108) 104 04/05/19 17:07 98.1 81 18 146/82 99 Room Air Intake and Output 04/05/19 04/06/19 18:59 06:59 Output Total 50 ml 300 ml Balance -50 ml -300 ml Output Urine Total 50 ml 300 ml # Voids 1 2 Height (Feet): 5 Height (Inches): 0.00 Weight (Pounds): 94 General Appearance: alert, thin EENT: PERRL/EOMI Neck: normal alignment, supple Cardiovascular: normal rate, regular rhythm Respiratory/Chest: lungs clear Edema: no edema noted Arm (L), no edema noted Arm (R), no edema noted Leg (L), no edema noted Leg (R), no edema noted Pedal (L), no edema noted Pedal (R), no edema noted Generalized Neurologic: radon inspector II-XII grossly normal Objective back a little less pain, still bedridden to mobilize with PT, continue pain regimen, pyuria check culture Tao Hoang MD Apr 06, 2019 15:20
--- NOTE | 2019-04-06 15:57 | NUR ---
P.T Note: Pt found to have L-spine compression FX. P.T evaluation deferred pending Ortho clearance to mobilize pt. Conferred with RN.Will follow up tomorrow.
[2019-04-06 16:00] VITALS: BP 130/62
--- NOTE | 2019-04-06 19:17 | NUR ---
HAND-OFF: Report given to RAMÓN Mora.
[2019-04-06 20:00] VITALS: BP 119/65
[2019-04-06] MEDS: Atorvastatin 20mg tab ORAL SCH (20:54)
[2019-04-06] MEDS: Donepezil 5mg Tab ORAL SCH (20:55)
[2019-04-06 21:22] LABS: APPEARANCE,URINE VERY CLOUDY; BILIRUBIN, URINE NEGATIVE (NEGATIVE); GLUCOSE, URINE (UA) NEGATIVE (NEGATIVE); KETONES,URINE 1+ (NEGATIVE); LEUKOCYTE ESTERASE ,URINE 3+ (NEGATIVE); NITRITE,URINE NEGATIVE (NEGATIVE); PH,URINE 5 (4.5-8.0); PROTEIN,URINE 2+ (NEGATIVE); UROBILINOGEN,URINE 1 MG/DL (0.0-1.0)
[2019-04-06 21:32] LABS: COLOR,URINE YELLOW
[2019-04-07] VITALS: BP 116/59
[2019-04-07] MEDS: traMADol 50mg tab ORAL SCH ×4 (00:45→17:59)
[2019-04-07 04:00] VITALS: BP 105/60
[2019-04-07 06:38] LABS: BASOPHILS % (AUTO) 0.7 % (0.0-2.0); EOSINOPHILS % (AUTO) 2.7 % (0.0-3.0); HEMATOCRIT 33.2 % (37.0-47.0); LYMPHOCYTES % (AUTO) 28.4 % (20.0-45.0); MEAN CORPUSCULAR VOLUME 101 FL (80-99); MONOCYTES % (AUTO) 7.1 % (1.0-10.0); NEUTROPHILS % (AUTO) 61.2 % (45.0-75.0); PLATELET COUNT 148 K/UL (150-450); RED BLOOD COUNT 3.29 M/UL (4.20-5.40); RED CELL DISTRIBUTION WIDTH 11.5 % (11.6-14.8); WHITE BLOOD COUNT 7.3 K/UL (4.8-10.8)
[2019-04-07] MEDS: NovoLOG Insulin Flexpen SUBQ SCH ×4 (06:41→20:59)
[2019-04-07 07:02] LABS: ANION GAP 10 mmol/L (5-15); BLOOD UREA NITROGEN 18 mg/dL (7-18); CALCIUM 8.8 MG/DL (8.5-10.1); CARBON DIOXIDE 24 MMOL/L (21-32); CHLORIDE 109 MMOL/L (98-107); CREATININE 0.9 MG/DL (0.55-1.30); POTASSIUM 5.1 MMOL/L (3.5-5.1); SODIUM 143 MMOL/L (136-145)
--- NOTE | 2019-04-07 07:48 | NUR ---
HAND-OFF: Report given to RAMÓN Aparicio. Patient in stable condition.
[2019-04-07 08:00] VITALS: BP 102/54
[2019-04-07] MEDS: Tums 500mg ORAL SCH ×2 (08:58→17:59)
[2019-04-07] MEDS: Losartan 50mg tab ORAL SCH (08:58)
[2019-04-07] MEDS: Memantine 10mg tab ORAL SCH ×2 (08:58→17:59)
[2019-04-07] MEDS: Docusate 100mg cap ORAL SCH ×2 (08:59→20:51)
[2019-04-07] MEDS: Vitamin D 1000 IU Tab ORAL SCH (08:59)
[2019-04-07] MEDS: Heparin 5000 units/ml inj SUBQ SCH ×2 (09:00→20:52)
[2019-04-07] MEDS: Carvedilol 12.5mg tab ORAL SCH ×2 (09:00→20:50)
--- NOTE | 2019-04-07 10:31 | NUR ---
P.T Note: Pt cleared by Dr Hoang for mobilization. P.T evaluation completed. Please refer to P.T evaluation for current functional status. Pt is alert, oriented x 4 , pleasant and cooperative despite c/o generalized weakness and pain on the lower back aggravated by movement initiation/transitions 10/14. Pt premedicated prior to P.T evaluation. Pt currently require MOD A X 1 for bed mobilities, MIN A X 1 for transfer and gait/ambulation using the FWW. Overall fair- activity tolerance. Skilled P.T service is warranted to improve strength and activity tolerance to increase her mobility independence and safety. Recommend SNF for further rehab intervention. Thank you for this referral. Pt is cleared for OOB activities with nursing assist.
[2019-04-07 12:00] VITALS: BP 126/64
--- NOTE | 2019-04-07 14:35 | NUR ---
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 97.3 HR 100 RR 14 B/P 158/78 K 3.3 ALK PHOS 139 UA+ PROTEIN,RBC,WBC,LEUKOCYTE ESTERASE,BACTERIA IS: MORPHINE IV ZOFRAN IV ADMITTED TO MED/SURG MED/SURG STATUS DCP SNF VS HOME
[2019-04-07 16:00] VITALS: BP 128/62
--- NOTE | 2019-04-07 17:04 | NUR ---
MEDICAL GENETICS DIRECTOR NOTES SPOKE WITH PT'S SON REHANA. REHANA IS IN AGREEMENT WITH DCP TO [facility]. CLINICALS FAXED TO [facility] WILL FOLLOW UP WITH ACCEPTANCE. Addendum: 04/07/19 at 1716 by NGHIA BURNHAM RN RN SPOKE WITH LINDEN FROM [facility], SHE WILL REVIEW THE INQUIRY AND CALL FOR ACCEPTANCE.
--- NOTE | 2019-04-07 19:41 | NUR ---
HAND-OFF: Report given to Morgan MELGAR.
--- NOTE | 2019-04-07 19:49 | Nephrology Progress Note ---
Assessment/Plan Problem List: (1) Diabetes (2) Gait abnormality (3) Back pain (4) Lumbar compression fracture Plan continue with analgesics, PT states she is not safe, ecf recommended, d/w SW Subjective Constitutional: Reports: weakness HEENT: Reports: no symptoms Genitourinary: Reports: no symptoms Neurologic/Psychiatric: Reports: no symptoms Subjective back pain less sever Objective Objective Last 24 Hour Vital Signs Date Time Temp Pulse Resp B/P (MAP) Pulse Ox O2 Delivery O2 Flow Rate FiO2 04/07/19 16:00 97.7 68 18 128/62 (84) 94 04/07/19 12:00 97.4 70 16 126/64 (84) 97 04/07/19 09:00 Room Air 04/07/19 09:00 68 102/54 04/07/19 08:58 68 102/54 04/07/19 08:58 102/54 04/07/19 08:00 97.5 68 18 102/54 (70) 95 04/07/19 04:00 98.0 81 16 105/60 (75) 93 04/07/19 00:00 97.5 69 18 116/59 (78) 94 04/06/19 21:00 Room Air 04/06/19 20:55 69 114/65 04/06/19 20:00 97.8 69 17 119/65 (83) 95 Laboratory Tests 04/06/19 21:00: Urine Color Yellow, Urine Appearance Very cloudy, Urine pH 5, Urine Specific [place] 1.020, Urine Protein 2+H, Urine Glucose (UA) Negative, Urine Ketones 1+H , Urine Blood 3+H, Urine Nitrite Negative, Urine Bilirubin Negative, Urine Urobilinogen 1H, Urine Leukocyte Esterase 3+H, Urine RBC 5-10H, Urine WBC TntcH , Urine Squamous Epithelial Cells Occasional, Urine Bacteria ManyH 04/07/19 05:15: White Blood Count 7.3, Red Blood Count 3.29L, Hemoglobin 11.0L, Hematocrit 33.2L , Mean Corpuscular Volume 101H, Mean Corpuscular Hemoglobin 33.4H, Mean Corpuscular Hemoglobin Concent 33.2, Red Cell Distribution Width 11.5L, Platelet Count 148L, Mean Platelet Volume 6.1L, Neutrophils (%) (Auto) 61.2, Lymphocytes (%) (Auto) 28.4, Monocytes (%) (Auto) 7.1, Eosinophils (%) (Auto) 2.7, Basophils (%) (Auto) 0.7, Sodium Level 143, Potassium Level 5.1, Chloride Level 109H, Carbon Dioxide Level 24, Anion Gap 10, Blood Urea Nitrogen 18, Creatinine 0.9, Estimat Glomerular Filtration Rate , Glucose Level 168H, Calcium Level 8.8 Height (Feet): 5 Height (Inches): 0.00 Weight (Pounds): 94 General Appearance: no apparent distress, thin EENT: PERRL/EOMI, pharynx normal Neck: non-tender Cardiovascular: normal rate, regular rhythm Respiratory/Chest: lungs clear Abdomen: non tender, soft Extremities: non-tender Neurologic: eradicator II-XII grossly normal Objective pain with movement in bed Tao Hoang MD Apr 07, 2019 19:49
--- NOTE | 2019-04-07 19:52 | NUR ---
NURSE NOTES: Received report from Alessandra Costa RN. Patient is up in chair, no c/o pain at this time. She is alert and oriented x4. R wrist IV is intact. Call light within reach. Family at bedside.
[2019-04-07 20:00] VITALS: BP 124/60
[2019-04-07] MEDS: Donepezil 5mg Tab ORAL SCH (20:50)
[2019-04-07] MEDS: Atorvastatin 20mg tab ORAL SCH (20:51)
[2019-04-08] VITALS: BP 150/70
--- NOTE | 2019-04-08 | NUR ---
NURSE NOTES: Received report from RAMÓN De Anda. Pt AAO x 3, on room air. Japanese speaking. Walk with unsteady gait. Walker provided. IV site intact and patent. No acute distress noted at this time. Fall precaution maintained. Bed locked, lowest position, alarm on, side rails up x 2, call light within reach. Will continue to monitor.
[2019-04-08] MEDS: traMADol 50mg tab ORAL SCH ×4 (00:43→18:27)
[2019-04-08 04:00] VITALS: BP 151/84
[2019-04-08] MEDS: NovoLOG Insulin Flexpen SUBQ SCH ×4 (06:25→21:32)
--- NOTE | 2019-04-08 07:54 | NUR ---
HAND-OFF: Report given to RAMÓN Mata. Patient in stable condition.
--- NOTE | 2019-04-08 08:00 | NUR ---
NURSE NOTES: Patient is awake and alert,respirations unlabored.Saline lock to the right wrist intact.patient state no complaint of pain at this time.Bed alarm is on,call light within reach.
[2019-04-08 08:16] VITALS: BP 127/67
[2019-04-08] MEDS: Carvedilol 12.5mg tab ORAL SCH ×2 (08:30→21:22)
[2019-04-08] MEDS: Docusate 100mg cap ORAL SCH ×2 (08:30→21:24)
[2019-04-08] MEDS: Losartan 50mg tab ORAL SCH (08:30)
[2019-04-08] MEDS: Memantine 10mg tab ORAL SCH ×2 (08:32→18:15)
[2019-04-08] MEDS: Vitamin D 1000 IU Tab ORAL SCH (08:33)
[2019-04-08] MEDS: Tums 500mg ORAL SCH ×2 (08:33→18:15)
[2019-04-08] MEDS: Heparin 5000 units/ml inj SUBQ SCH ×2 (09:00→21:00)
[2019-04-08 12:00] VITALS: BP 134/70
--- NOTE | 2019-04-08 13:30 | NUR ---
NURSE NOTES: from previous notes called [facility] to f/u with possible placement. per Miguel OWENS, she stated that she didn't received any paperwork yesterday. RN faxed info at [phone](F). I will f/u as needed. [facility] Address: [address] [place] [address]
--- NOTE | 2019-04-08 13:34 | General Progress Note ---
Assessment/Plan Problem List: (1) Diabetes ICD Codes: E11.9 - Type 2 diabetes mellitus without complications SNOMED: 67582046 (2) Gait abnormality ICD Codes: R26.9 - Unspecified abnormalities of gait and mobility SNOMED: 76759274 (3) Back pain ICD Codes: M54.9 - Dorsalgia, unspecified SNOMED: 147114242 (4) Lumbar compression fracture ICD Codes: S32.000A - Wedge compression fracture of unspecified lumbar vertebra , initial encounter for closed fracture SNOMED: 165561451 Subjective Constitutional: Reports: weakness HEENT: Reports: no symptoms Cardiovascular: Reports: no symptoms Respiratory: Reports: no symptoms Gastrointestinal/Abdominal: Reports: no symptoms Genitourinary: Reports: no symptoms Neurologic/Psychiatric: Reports: no symptoms Endocrine: Reports: no symptoms Hematologic/Lymphatic: Reports: no symptoms Allergies: Coded Allergies: No Known Allergies (Unverified , 02/12/19) Subjective mod back pain Objective Last 24 Hour Vital Signs Date Time Temp Pulse Resp B/P (MAP) Pulse Ox O2 Delivery O2 Flow Rate FiO2 04/08/19 12:00 98.0 91 18 134/70 (91) 96 04/08/19 09:39 Room Air 04/08/19 08:30 127/67 04/08/19 08:30 88 127/67 04/08/19 08:21 88 127/67 04/08/19 08:16 97.5 88 18 127/67 (87) 97 04/08/19 04:00 97.7 87 16 151/84 (106) 95 04/08/19 00:00 97.4 67 16 150/70 (96) 98 04/07/19 21:00 Room Air 04/07/19 20:50 68 124/60 04/07/19 20:00 97.5 68 18 124/60 (81) 95 04/07/19 16:00 97.7 68 18 128/62 (84) 94 Intake and Output 04/07/19 04/08/19 19:00 07:00 Intake Total 800 ml Output Total 900 ml Balance -100 ml Intake Oral 800 ml Output Urine Total 900 ml # Voids 4 Height (Feet): 5 Height (Inches): 0.00 Weight (Pounds): 94 General Appearance: no apparent distress, alert EENT: normal ENT inspection Neck: normal alignment Cardiovascular: normal rate, regular rhythm Respiratory/Chest: lungs clear Abdomen: non tender Edema: no edema noted Arm (L), no edema noted Arm (R), no edema noted Leg (L), no edema noted Leg (R), no edema noted Pedal (L), no edema noted Pedal (R), no edema noted Generalized Objective back a little less pain, still bedridden to mobilize with PT, continue pain regimen, pyuria check culture--e coli uti rx sxt Tao Hoang MD Apr 08, 2019 13:34
--- NOTE | 2019-04-08 14:34 | NUR ---
NURSE NOTES: Per pt's son request called and faxed info to [facility] at: [phone](P) [phone](F) s/w charge nurse. she stated to f/u on Wednesday since she is not able to check eligibility over the weekend. I will f/u as needed. Addendum: 04/08/19 at 1439 by Adolfo Mcgrath RN [facility] address: [address] [facility] [id number] (P) fax: [phone](F) Attention: Caitlyn
[2019-04-08] MEDS: Bactrim SS Tab ORAL SCH ×2 (14:40→21:24)
[2019-04-08 16:00] VITALS: BP 136/83
[2019-04-08] MEDS: metFORMIN 500mg tab ORAL SCH (16:53)
--- NOTE | 2019-04-08 18:00 | NUR ---
NURSE NOTES: DR Lozoya was her to see patient today and aware of patient platelet today of 148,DR lozoya state okay to give heparin as ordered.
--- NOTE | 2019-04-08 18:57 | NUR ---
NURSE NOTES: n patient resting,patient state no pain at this time,patient not wanting pain medication as schedule at this time.patient assist to bathroom,voiding without difficulty.back to bed,bed alarm is on,call light within reach.
[2019-04-08 20:00] VITALS: BP 108/50
--- NOTE | 2019-04-08 20:00 | NUR ---
HAND-OFF: Report given to Emili MELGAR.
[2019-04-08] MEDS: Atorvastatin 20mg tab ORAL SCH (21:23)
[2019-04-08] MEDS: Donepezil 5mg Tab ORAL SCH (21:27)
[2019-04-09] VITALS: BP 155/79
[2019-04-09] MEDS: traMADol 50mg tab ORAL SCH ×2 (01:00→06:15)
[2019-04-09 04:00] VITALS: BP 138/65
[2019-04-09] MEDS: NovoLOG Insulin Flexpen SUBQ SCH ×4 (05:43→21:00)
[2019-04-09] MEDS: metFORMIN 500mg tab ORAL SCH ×2 (05:43→16:20)
--- NOTE | 2019-04-09 07:38 | NUR ---
HAND-OFF: Report given to RAMÓN Mcgrath.
[2019-04-09 08:00] VITALS: BP 112/60
--- NOTE | 2019-04-09 08:00 | NUR ---
NURSE NOTES: Received report from Julianne MELGAR, pt a/a/o x3 with no signs of distress or other issues at this time. IV on the left wrist gauge#20 heplock. RN will review orders and will carry on as indicated. call light within reach, bed in lowest position, side rales up. I will f/u as needed.
[2019-04-09] MEDS: Losartan 50mg tab ORAL SCH (09:00)
[2019-04-09] MEDS: Heparin 5000 units/ml inj SUBQ SCH ×2 (09:07→21:00)
[2019-04-09] MEDS: Memantine 10mg tab ORAL SCH ×2 (09:10→17:15)
[2019-04-09] MEDS: Tums 500mg ORAL SCH ×2 (09:11→17:15)
[2019-04-09] MEDS: Bactrim SS Tab ORAL SCH ×2 (09:11→20:55)
[2019-04-09] MEDS: Vitamin D 1000 IU Tab ORAL SCH (09:11)
[2019-04-09] MEDS: Docusate 100mg cap ORAL SCH ×2 (09:11→20:53)
[2019-04-09] MEDS: Carvedilol 12.5mg tab ORAL SCH ×2 (09:11→20:55)
--- NOTE | 2019-04-09 10:13 | General Progress Note ---
Assessment/Plan Problem List: (1) Diabetes ICD Codes: E11.9 - Type 2 diabetes mellitus without complications SNOMED: 07160192 (2) Gait abnormality ICD Codes: R26.9 - Unspecified abnormalities of gait and mobility SNOMED: 55789662 (3) Back pain ICD Codes: M54.9 - Dorsalgia, unspecified SNOMED: 512472216 (4) Lumbar compression fracture ICD Codes: S32.000A - Wedge compression fracture of unspecified lumbar vertebra , initial encounter for closed fracture SNOMED: 400219170 Subjective Constitutional: Reports: weakness HEENT: Reports: no symptoms Cardiovascular: Reports: no symptoms Respiratory: Reports: no symptoms Gastrointestinal/Abdominal: Reports: no symptoms Genitourinary: Reports: no symptoms Neurologic/Psychiatric: Reports: pre-existing deficit Endocrine: Reports: no symptoms Hematologic/Lymphatic: Reports: no symptoms Allergies: Coded Allergies: No Known Allergies (Unverified , 02/12/19) Subjective mod back pain Objective Last 24 Hour Vital Signs Date Time Temp Pulse Resp B/P (MAP) Pulse Ox O2 Delivery O2 Flow Rate FiO2 04/09/19 09:11 82 112/60 04/09/19 09:00 82 112/60 04/09/19 09:00 112/60 04/09/19 04:00 98.0 98 19 138/65 (89) 94 04/09/19 00:00 98.8 72 18 155/79 (104) 96 04/08/19 21:22 77 110/48 04/08/19 21:00 Room Air 04/08/19 20:00 98.2 77 16 108/50 (69) 94 04/08/19 16:00 97.7 91 18 136/83 (100) 96 04/08/19 12:00 98.0 91 18 134/70 (91) 96 Intake and Output 04/08/19 04/09/19 19:00 07:00 Intake Total 630 ml Balance 630 ml Intake Oral 630 ml # Voids 3 Height (Feet): 5 Height (Inches): 0.00 Weight (Pounds): 94 General Appearance: no apparent distress, alert EENT: normal ENT inspection Cardiovascular: normal rate, regular rhythm Respiratory/Chest: lungs clear Edema: no edema noted Arm (L), no edema noted Arm (R), no edema noted Leg (L), no edema noted Leg (R), no edema noted Pedal (L), no edema noted Pedal (R), no edema noted Generalized Neurologic: motor weakness Objective back a little less pain, still bedridden to mobilize with PT, continue pain regimen, pyuria check culture--e coli uti rx sxt, metformin for dm, dc planning as unstable gait Tao Hoang MD Apr 09, 2019 10:13
[2019-04-09] MEDS ORDERED: traMADol 50mg tab ORAL PRN (10:15)
[2019-04-09 12:00] VITALS: BP 109/60
[2019-04-09 16:00] VITALS: BP 112/60
--- NOTE | 2019-04-09 19:24 | NUR ---
HAND-OFF: Report given to Saqib Mari pt in stable condition.
--- NOTE | 2019-04-09 19:45 | NUR ---
NURSE NOTES: Patient in bed awake and oriented. VSS. 6/10 pain noted. On routine Tylenol 650 given and tolerated well. Patient ambulates to the bathroom very unsteady. But does not call for assistance. Bed alarm on siderails up. Bed is locked and in low position. Fall risk precautions in place. Head light is on. Clutters removed. Needs attended. Call light within reach. In stable condition.
[2019-04-09 20:00] VITALS: BP 103/62
[2019-04-09] MEDS: Donepezil 5mg Tab ORAL SCH (20:55)
[2019-04-09] MEDS: Atorvastatin 20mg tab ORAL SCH (20:55)
[2019-04-10] VITALS: BP 108/63
[2019-04-10 04:00] VITALS: BP 112/62
[2019-04-10] MEDS: metFORMIN 500mg tab ORAL SCH ×2 (05:50→17:22)
[2019-04-10] MEDS: NovoLOG Insulin Flexpen SUBQ SCH ×4 (06:10→21:30)
--- NOTE | 2019-04-10 07:48 | NUR ---
NURSE NOTES: Pt is awake call light is in reach. Bed alarm on due to hx of falls. Current palnn will be followed
[2019-04-10 08:00] VITALS: BP 145/86
[2019-04-10] MEDS: Losartan 50mg tab ORAL SCH (08:24)
[2019-04-10] MEDS: Memantine 10mg tab ORAL SCH ×2 (08:24→17:21)
[2019-04-10] MEDS: Docusate 100mg cap ORAL SCH ×2 (08:26→21:14)
[2019-04-10] MEDS: Bactrim SS Tab ORAL SCH ×2 (08:26→21:14)
[2019-04-10] MEDS: Carvedilol 12.5mg tab ORAL SCH ×2 (08:26→21:00)
[2019-04-10] MEDS: Tums 500mg ORAL SCH ×2 (08:27→17:21)
[2019-04-10] MEDS: Vitamin D 1000 IU Tab ORAL SCH (08:27)
--- NOTE | 2019-04-10 08:56 | NUR ---
NURSE NOTES: Pt platelet count is [address] Hoang phoned to inquire if he wanted Heparin administered and or parameters added to order. Dialed at [phone]
[2019-04-10] MEDS: Heparin 5000 units/ml inj SUBQ SCH ×3 (09:00→21:16)
--- NOTE | 2019-04-10 10:53 | NUR ---
COURT TRANSCRIBER NOTES PT ACCEPTED TO [facility] ROOM [address]. NURSE TO CALL REPORT TO [phone]. WAITING FOR DISCHARGE ORDER. [facility] [address] [place] [address]
--- NOTE | 2019-04-10 11:13 | NUR ---
NURSE NOTES: Dr Hoang office, called due to placement being obtained per case management . Verbal message , left with office at [phone]
--- NOTE | 2019-04-10 11:24 | NUR ---
NURSE NOTES: Dr lozoya returned call . Informed of placement for pt , SNF, stated he will be here later in shift. Strong Nitric Operator informed that heparin was not given due to low platelet and verbal message inquiring if he wanted parameters . " It is ordered so give it, it is not for you to decide that" gave orders to give heparin now.
[2019-04-10 12:00] VITALS: BP 129/68
--- NOTE | 2019-04-10 13:17 | NUR ---
NURSE NOTES: Scanned routine medications and they did not save , administered medication
--- NOTE | 2019-04-10 13:44 | NUR ---
NURSE NOTES: Requires assistance for bathroom needs, due to unsteady gait. bed alarm on , call light is in reach . Ate well for lunch , 2 units of insulin provided . Pt is comfortable no verbalizations of pain at this time
[2019-04-10] MEDS ORDERED: CALCITONIN-SAL3.7 ML NASAL (14:09)
[2019-04-10] MEDS ORDERED: TRAMADOL HCL50 MG ORAL (14:09)
[2019-04-10] MEDS ORDERED: BACTRIM SINGLE S1 EA ORAL (14:09)
[2019-04-10] MEDS ORDERED: VITAMIN D1000 UNI1 ORAL (14:09)
[2019-04-10] MEDS ORDERED: PANTOPRAZOLE SO40 MG ORAL (14:09)
[2019-04-10] MEDS ORDERED: NORVASC5 MG ORAL (14:09)
[2019-04-10] MEDS ORDERED: GLUCOPHAGE500 MG ORAL (14:09)
[2019-04-10] MEDS ORDERED: GABAPENTIN100 MG ORAL (14:09)
[2019-04-10] MEDS ORDERED: LIDODERM700 M1 TDERMAL (14:09)
[2019-04-10] MEDS ORDERED: COREG12.5 MG ORAL (14:09)
[2019-04-10] MEDS ORDERED: ARICEPT5 MG ORAL (14:09)
[2019-04-10] MEDS ORDERED: LEXAPRO10 MG ORAL (14:09)
--- NOTE | 2019-04-10 15:24 | NUR ---
RD ASSESSMENT & RECOMMENDATIONS SEE CARE ACTIVITY FOR COMPLETE ASSESSMENT DAILY ESTIMATED NEEDS: Needs based on DM, cardiac 42.7kg 25-35 kcals/kg 2951-5486 total kcals 1-1.5 g protein/kg 43-64 g total protein 25-30 mL/kg 1626-6769 total fluid mLs NUTRITION DIAGNOSIS: Altered nutrition related lab values r/t DM, clinical status as evidenced by BG 168, 159, w/ elev POC (111-192), low K (3.3-> wnl). CURRENT DIET:[facility] MED/ KHUSHI PO DIET RECOMMENDATIONS: [facility] + Glucerna 1 tetra alessandro BID in b/w meals ADDITIONAL RECOMMENDATIONS: 1) Standing wt of calibrated bedscale wt for accurate CBW -> weekly wt monitoring given underweight status 2) Check lytes, replete as needed 3) Monitor for continued good PO intake 4) A1C for eval of glycemic control .
--- NOTE | 2019-04-10 15:49 | NUR ---
NURSE NOTES: Dr Hoang here to see the pt. Had a Pashto speaking nurse interpret pending orders to SNF. Pt verbalized understanding per Pashto Nurse Min.
[2019-04-10 16:00] VITALS: BP 93/56
--- NOTE | 2019-04-10 18:58 | NUR ---
NURSE NOTES: Pt son called for follow up on mother, stated he went to SNF looking for his mother, informed that the MD opal not palce an order for discharge, and has orders for blood draw in am. Pt has been accepted more than likely discharge will occur tomorrow. Case Management follow up required for room # and inter facility report. Pt is currently here at mothers bedside, no further question,s. Pt has been in stable condition today. Escorted to restroom for needs, bed alarm on due to attempts of getting out of the bed unassisted. Blood Sugar for dinner time was 120 covered with one unit. Pt did not want to answer questions related to BM yet typewriter ribbon winder could smell flatus, bowel sound active . Cooperated with plan of care
--- NOTE | 2019-04-10 19:41 | NUR ---
HAND-OFF: Report given to Saqib MELGAR made aware of pending transfer.
[2019-04-10 20:00] VITALS: BP 101/46
--- NOTE | 2019-04-10 20:28 | General Progress Note ---
Assessment/Plan Problem List: (1) Diabetes ICD Codes: E11.9 - Type 2 diabetes mellitus without complications SNOMED: 87178608 (2) Gait abnormality ICD Codes: R26.9 - Unspecified abnormalities of gait and mobility SNOMED: 73674609 (3) Back pain ICD Codes: M54.9 - Dorsalgia, unspecified SNOMED: 709815561 (4) Lumbar compression fracture ICD Codes: S32.000A - Wedge compression fracture of unspecified lumbar vertebra , initial encounter for closed fracture SNOMED: 629057480 Assessment/Plan: improving but needs rehab, discharge ordered but not yet arranged, possible dc 04/11 Subjective Constitutional: Reports: weakness HEENT: Reports: no symptoms Cardiovascular: Reports: no symptoms Respiratory: Reports: no symptoms Gastrointestinal/Abdominal: Reports: no symptoms Genitourinary: Reports: no symptoms Neurologic/Psychiatric: Reports: no symptoms Allergies: Coded Allergies: No Known Allergies (Unverified , 02/12/19) Subjective mod back pain Objective Last 24 Hour Vital Signs Date Time Temp Pulse Resp B/P (MAP) Pulse Ox O2 Delivery O2 Flow Rate FiO2 04/10/19 16:00 98.0 68 93/56 (68) 04/10/19 12:00 96.2 105 18 129/68 (88) 04/10/19 09:00 Room Air 04/10/19 08:26 78 145/86 04/10/19 08:25 78 145/86 04/10/19 08:24 145/86 04/10/19 08:00 98.4 102 18 145/86 (105) 97 04/10/19 04:00 98.0 70 17 112/62 (79) 96 04/10/19 00:00 97.9 74 17 108/63 (78) 95 04/09/19 21:00 Room Air 04/09/19 20:55 68 110/68 Height (Feet): 5 Height (Inches): 0.00 Weight (Pounds): 94 General Appearance: no apparent distress, thin EENT: normal ENT inspection Neck: normal alignment Cardiovascular: normal rate Respiratory/Chest: lungs clear Abdomen: soft, no organomegaly Edema: no edema noted Arm (L), no edema noted Arm (R), no edema noted Leg (L), no edema noted Leg (R), no edema noted Pedal (L), no edema noted Pedal (R), no edema noted Generalized 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
[2019-04-10] MEDS: Donepezil 5mg Tab ORAL SCH (21:14)
[2019-04-10] MEDS: Atorvastatin 20mg tab ORAL SCH (21:15)
--- NOTE | 2019-04-10 21:36 | NUR ---
NURSE NOTES: Patient in bed awake and oriented. VSS. No SOB noted. Due meds given. Needs attended. Son at bedside. No signs of distress noted. No pain. Call light within reach. In stable condition. Bed is locked and in low position. Bed alarm on. Will continue to monitor.
[2019-04-11] VITALS: BP 105/51
--- NOTE | 2019-04-11 01:00 | Discharge Summary ---
DATE OF ADMISSION: 04/05/2019 DATE OF DISCHARGE: 04/10/2019 PERTINENT HISTORY: The patient is a 79-year-old [place] lady, who had a ground level fall and presents with severe back pain and difficulty walking. There is a history of diabetes, hypertension, and prior Whipple surgery. ALLERGIES: None known. PERTINENT PHYSICAL FINDINGS: HEENT: Oral mucosa slightly dry. LUNGS: Clear. HEART: Regular rhythm. No murmur. ABDOMEN: Soft without organomegaly. EXTREMITIES: No edema. BACK: She has kpbiqyge-he-knhfes pain. She brings her knees to her chest almost in a position. She is unable to ambulate at the time of my exam. COURSE IN THE HOSPITAL: The patient had a lumbar MRI, which showed mild acute horizontal superior endpoint fractures at T12 and L4, minimal loss of height, and no retropulsion. There is multilevel degenerative changes and small disc disease. The patient was seen by physical therapy and required assistance in ambulation. Her diabetes was well managed. She did have pyuria and a E. coli urinary tract infection that was sensitive to Bactrim. On the day of discharge, her pain was much less. Lungs were clear. Heart, regular rhythm. Abdomen, soft. Extremities, no edema. She was able to ambulate with assistance, but needed supervision and after discussion with the family, arrangements were made for her to go to a halfway facility for rehabilitation. FINAL DIAGNOSES: 1. Lumbar and thoracic vertebral compression fractures. 2. Uncontrolled back pain. 3. Gait disorder. 4. Urinary tract infection with E. coli. 5. Adult-onset diabetes. 6. Hypertension. DISCHARGE DISPOSITION: To the [facility] on a diabetic diet. MEDICATIONS: Per the discharge medication list. FOLLOWUP: Follow up by Dr. Hoang in the facility. Case is discussed with the family in detail. Tao Hoang M.D. DR: JENNIFER JOB#: [id number] CC:
--- NOTE | 2019-04-11 03:08 | NUR ---
NURSE NOTES: Patient assisted to the bathroom. Bowel movement x1. No pain at this time. No SOB. Assisted back to bed. Bed alarm on. Siderails up. Bed is locked. Call light within reach. In stable condition.
[2019-04-11 04:00] VITALS: BP 98/56
[2019-04-11] MEDS: NovoLOG Insulin Flexpen SUBQ SCH ×2 (06:30→11:30)
[2019-04-11] MEDS: metFORMIN 500mg tab ORAL SCH (06:37)
[2019-04-11 06:42] LABS: BASOPHILS % (AUTO) 0.5 % (0.0-2.0); EOSINOPHILS % (AUTO) 2.5 % (0.0-3.0); HEMATOCRIT 33.4 % (37.0-47.0); HEMOGLOBIN 10.9 G/DL (12.0-16.0); LYMPHOCYTES % (AUTO) 24.7 % (20.0-45.0); MEAN CORPUSCULAR VOLUME 102 FL (80-99); MONOCYTES % (AUTO) 6.2 % (1.0-10.0); NEUTROPHILS % (AUTO) 66.1 % (45.0-75.0); PLATELET COUNT 214 K/UL (150-450); RED BLOOD COUNT 3.29 M/UL (4.20-5.40); RED CELL DISTRIBUTION WIDTH 11.5 % (11.6-14.8); WHITE BLOOD COUNT 7.2 K/UL (4.8-10.8)
[2019-04-11 07:17] LABS: ANION GAP 9 mmol/L (5-15); BLOOD UREA NITROGEN 26 mg/dL (7-18); CALCIUM 9.5 MG/DL (8.5-10.1); CARBON DIOXIDE 22 MMOL/L (21-32); CHLORIDE 111 MMOL/L (98-107); POTASSIUM 4.8 MMOL/L (3.5-5.1); SODIUM 142 MMOL/L (136-145)
[2019-04-11 08:00] VITALS: BP 123/60
--- NOTE | 2019-04-11 08:07 | Nephrology Progress Note ---
Assessment/Plan Assessment/Plan: A/P (1) Diabetes - DC today to Rehab (2) Gait abnormality (4) Lumbar compression fracture Wedge compression fracture of unspecified lumbar vertebra, initial encounter for closed fracture Assessment/Plan: improving but needs rehab discharge ordered 04/11 Subjective Date patient seen: Apr 11, 2019 Time patient seen: 08:05 ROS Limited/Unobtainable: No Allergies: Coded Allergies: No Known Allergies (Unverified , 02/12/19) Subjective Patient awaiting DC today Objective Last 24 Hour Vital Signs Date Time Temp Pulse Resp B/P (MAP) Pulse Ox O2 Delivery O2 Flow Rate FiO2 04/11/19 04:00 98.2 70 16 98/56 (70) 99 04/11/19 00:00 97.8 72 17 105/51 (69) 95 04/10/19 21:00 Room Air 04/10/19 21:00 77 101/46 04/10/19 20:00 98.0 77 16 101/46 (64) 96 04/10/19 16:00 98.0 68 93/56 (68) 04/10/19 12:00 96.2 105 18 129/68 (88) 04/10/19 09:00 Room Air 04/10/19 08:26 78 145/86 04/10/19 08:25 78 145/86 04/10/19 08:24 145/86 Intake and Output 04/10/19 04/11/19 19:00 07:00 # Voids 4 Laboratory Tests 04/11/19 05:10: White Blood Count 7.2, Red Blood Count 3.29L, Hemoglobin 10.9L, Hematocrit 33.4L , Mean Corpuscular Volume 102H, Mean Corpuscular Hemoglobin 33.1H, Mean Corpuscular Hemoglobin Concent 32.6, Red Cell Distribution Width 11.5L, Platelet Count 214, Mean Platelet Volume 5.9L, Neutrophils (%) (Auto) 66.1, Lymphocytes (%) (Auto) 24.7, Monocytes (%) (Auto) 6.2, Eosinophils (%) (Auto) 2.5, Basophils (%) (Auto) 0.5, Sodium Level 142, Potassium Level 4.8, Chloride Level 111H, Carbon Dioxide Level 22, Anion Gap 9, Blood Urea Nitrogen 26H, Creatinine 1.0, Estimat Glomerular Filtration Rate , Glucose Level 154H, Calcium Level 9.5 Height (Feet): 5 Height (Inches): 0.00 Weight (Pounds): 94 General Appearance: no apparent distress EENT: normal ENT inspection Neck: normal alignment, supple Cardiovascular: normal rate, regular rhythm Respiratory/Chest: lungs clear, normal breath sounds Abdomen: non tender, soft Edema: no edema noted Arm (L), no edema noted Arm (R), no edema noted Leg (L), no edema noted Leg (R), no edema noted Pedal (L), no edema noted Pedal (R), no edema noted Generalized Tino Campos MD Apr 11, 2019 08:07
--- NOTE | 2019-04-11 08:10 | Discharge Instructions ---
Discharge Instructions Discharge Instructions Services at Discharge: physical therapy Diet: 2 GM sodium (low sodium), renal diabetic Activity: other Follow Up Orders Discharge to Rehab For Congestive Heart Failure Reminder Report to your physician any weight gain of 5 pounds or more in one week. Tino Campos MD Apr 11, 2019 08:10
--- NOTE | 2019-04-11 08:18 | NUR ---
NURSE NOTES: Received patient awake and alert, lying comfortably in bed. IV site at left wrist, 20 gauge, saline lock. Bed at lowest level with 3 side rails up. Call light within reach. In no apparent distress at this time. Will continue to monitor.
[2019-04-11] MEDS: Heparin 5000 units/ml inj SUBQ SCH (08:55)
[2019-04-11] MEDS: Memantine 10mg tab ORAL SCH (08:56)
[2019-04-11] MEDS: Vitamin D 1000 IU Tab ORAL SCH (08:57)
[2019-04-11] MEDS: Bactrim SS Tab ORAL SCH (08:57)
[2019-04-11] MEDS: Docusate 100mg cap ORAL SCH (08:57)
[2019-04-11] MEDS: Carvedilol 12.5mg tab ORAL SCH (08:58)
[2019-04-11 09:00] VITALS: BP 123/60
[2019-04-11] MEDS: Losartan 50mg tab ORAL SCH (09:00)
[2019-04-11] MEDS: Tums 500mg ORAL SCH (09:00)
--- NOTE | 2019-04-11 09:19 | NUR ---
NURSE NOTES: Msg left for Miguel Angel, son, regarding discharge.
--- NOTE | 2019-04-11 09:23 | NUR ---
NURSE NOTES: Spoke to Miracle at [facility] and arranged transportation at 10:30. Patient going to [facility] ROOM [address] / [address] [place] [address] / [phone]
--- NOTE | 2019-04-11 09:29 | NUR ---
NURSE NOTES: Report given to RAMÓN Mccrary at [facility].
--- NOTE | 2019-04-11 11:46 | NUR ---
NURSE NOTES: Patient discharged. IV and ID removed. Belongings sent with patient. Patient escorted from facility by [facility] without incident or injury.
== END 2019-04-11 11:40 | DRG 552 ==
LOC: EDBD 12:26 → EMR 12:57 → 3E 13:18 → EDBEDREQ 16:09 → 3E 04-09 15:41
DX: S32.040A Wedge compression fracture of fourth lumbar vertebra, initial encounter for closed fracture (principal); S22.080A Wedge compression fracture of T11-T12 vertebra, initial encounter for closed fracture; N39.0 Urinary tract infection, site not specified; E11.9 Type 2 diabetes mellitus without complications; I10 Essential (primary) hypertension; R26.9 Unspecified abnormalities of gait and mobility; Z85.89 Personal history of malignant neoplasm of other organs and systems; Z79.4 Long term (current) use of insulin; W19.XXXA Unspecified fall, initial encounter; Y92.099 Unspecified place in other non-institutional residence as the place of occurrence of the external cause; G31.84 Mild cognitive impairment of uncertain or unknown etiology; B96.20 Unspecified Escherichia coli [E. coli] as the cause of diseases classified elsewhere
CPT/HCPCS: 36415; 72148; 80048; 80053; 81001; 82962; 84484; 85025; 85610; 85730; 87081; 87086; 87181; 96374; 96375; 99285; J1815; J2405; J8499